=== PATIENT | female | born 1980 | race Hispanic/Latino ===

== ENCOUNTER 2017-07-05 14:00 | Emergency (ER) | payer OTHER ==
[2017-07-05 14:06] VITALS: BMI 22.4
[2017-07-05 14:07] VITALS: RESP 18
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
[2017-07-05] MEDS ORDERED: cefTRIAXone (Rocephin) 250 mg Inj IM ONE (18:08)
[2017-07-05] MEDS ORDERED: Emtricitabine-Tenofovir 200 mg-300 mg Tab PO STA (18:09)
[2017-07-05] MEDS ORDERED: Emtricitabine-Tenofovir 200 mg-300 mg Tab PO NR (18:15)
[2017-07-05 18:25] LABS: BARBITURATES, UR NEGATIVE (NEGATIVE); BENZODIAZEPINES, UR NEGATIVE (NEGATIVE); OPIATES, UR NEGATIVE (NEGATIVE); PHENCYCLIDINE, UR NEGATIVE (NEGATIVE)
[2017-07-05] MEDS ORDERED: cefTRIAXone (Rocephin) 250 mg Inj ONE (18:28)
[2017-07-05 18:50] LABS: ALB/GLOB RATIO 1.4 (1.0-2.1); ALBUMIN 4.6 g/dL (3.5-5.0); ALT/SGPT 49 U/L (9-52); AST/SGOT 33 U/L (14-36); BLOOD UREA NITROGEN 11 mg/dl (7-17); CALCIUM 9.6 mg/dL (8.4-10.2); GFR AFRICAN-AMERICAN > 60; GFR NON-AFRICAN AMERICAN > 60
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
[2017-07-05 19:49] VITALS: BP 112/74; PULSE 89; TEMP 98.4
[2017-07-05 19:53] VITALS: O2SAT 99
== END 2017-07-05 19:56 | disposition home or self-care (01) ==
LOC: H.ER 14:00
DX: Z04.41 Encounter for examination and observation following alleged adult rape (principal); S00.83XA Contusion of other part of head, initial encounter; Y92.89 Other specified places as the place of occurrence of the external cause
CPT/HCPCS: 70480; 80053; 80324; 80345; 80346; 80349; 80353; 80358; 80361; 81025; 83992; 87390; 96372; 99285; J0696

== ENCOUNTER 2017-07-14 11:49 | Day surgery (SDC) | payer OTHER ==
[2017-07-14 13:03] VITALS: RESP 18
[2017-07-14] MEDS ORDERED: Lidocaine 1% 5ml Abboject IV ONE (14:38)
[2017-07-14] MEDS ORDERED: Midazolam 2 MG/2 ML VIAL ONE (14:38)
[2017-07-14] MEDS ORDERED: Propofol 10 mg/ml Inj (20 ML) ONE (14:38)
[2017-07-14] MEDS ORDERED: Lidocaine 2% Jelly (5 ml) TOP ONE (14:41)
[2017-07-14] MEDS ORDERED: Lactated Ringer's 1,000 ML IV ONE (14:48)
[2017-07-14] MEDS ORDERED: Silver Nitrate Topical - Stick TOP ONE (15:00)
[2017-07-14] MEDS ORDERED: Silver Nitrate Topical - Stick ONE (15:00)
[2017-07-14] MEDS ORDERED: HYDROmorphone 0.5 mg/0.5 ml ISec IVP PRN (15:13)
[2017-07-14 17:40] VITALS: O2SAT 99
[2017-07-14 17:51] VITALS: BP 131/69; PULSE 80; TEMP 98.4
--- NOTE | 2017-07-16 12:14 | OP ---
PROCEDURE DATE: 07/14/2017 PREOPERATIVE DIAGNOSIS: Cervical stenosis. POSTOPERATIVE DIAGNOSIS: Cervical stenosis. PROCEDURE: Dilatation of cervix and insertion of intrauterine device, Mirena. SURGEON: Abrahan Caldera MD ANESTHESIA ADMINISTERED BY: Amari Abraham MD TYPE OF ANESTHESIA: General anesthesia. DESCRIPTION OF PROCEDURE: With the patient in the dorsal lithotomy position under general anesthesia, the patient was prepped and draped in the usual sterile manner. A straight catheter was used to empty the bladder after which the cervix was grasped anteriorly with single-tooth tenaculum and dilated. After that was done, the intrauterine device was inserted into the uterine cavity without any complication. The cavity measured about 7 cm, minimal bleeding. The patient tolerated the procedure well and was in satisfactory condition on her way to recovery room. Abrahan Caldera MD
== END 2017-07-14 18:55 | disposition home or self-care (01) ==
LOC: H.OPSURG 11:49 → EDUNIT# 07-21 10:00
PROVIDERS: ATTEND Specialist
DX: N88.2 Stricture and stenosis of cervix uteri (principal)
CPT/HCPCS: 57800; 58300; J2250; J2704; J2765; J3010; J7030; J7120